=== PATIENT | female | born 2000 | race African-American/Black ===

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

== ENCOUNTER 2018-09-14 09:17 | Emergency (ER) | payer SELFPAY ==
[2018-09-14 09:28] VITALS: BP 150/92
--- NOTE | 2018-09-14 09:35 | ER Document Report ---
[facility]/ - General Chief Complaint: OB Problem (<20wks) Stated Complaint: CONFIRMATION Time Seen by Provider: 09/14/18 09:33 Information source: Patient - wants test done. No pelvic pain, no vag bleeding TRAVEL OUTSIDE OF THE [place] IN LAST 30 DAYS: No - Related Data Allergies/Adverse Reactions: No Known Allergies Allergy (Verified 09/14/18 09:18) Past Medical History - Social History Smoking Status: Never Smoker Family History: Reviewed & Not Pertinent - Immunizations Immunizations up to date: Yes Hx Diphtheria, Pertussis, Tetanus Vaccination: Yes Review of Systems - Review of Systems Constitutional: No symptoms reported EENT: No symptoms reported Cardiovascular: No symptoms reported Respiratory: No symptoms reported Gastrointestinal: No symptoms reported -: Yes All other systems reviewed and negative Physical Exam - Vital signs Vitals: Temp Pulse Resp BP Pulse Ox 98.3 F 62 16 150/92 H 100 09/14/18 09:27 09/14/18 09:27 09/14/18 09:27 09/14/18 09:27 09/14/18 09:27 - General General appearance: Appears well In distress: None - HEENT Pharynx: Normal Neck: Normal - Respiratory Respiratory status: No respiratory distress Breath sounds: Normal - Cardiovascular Rhythm: Regular Heart sounds: Normal auscultation Course - Re-evaluation Re-evalutation: 09/14/18 10:03 discussed with pt. neg preg. test here - Vital Signs Vital signs: Temp Pulse Resp BP Pulse Ox 98.3 F 62 16 150/92 H 100 09/14/18 09:27 09/14/18 09:27 09/14/18 09:27 09/14/18 09:27 09/14/18 09:27 - Laboratory Laboratory results interpreted by me: 09/14/18 09:30 Ur Leukocyte Esterase SMALL H Discharge - Discharge Clinical Impression: Laboratory test Condition: Stable Additional Instructions: rest, return if worse Referrals: BISMARK CAMPO MD [ACTIVE STAFF] - Follow up as needed
[2018-09-14 09:53] LABS: APPEARANCE,URINE SLIGHTLY-CLOUDY; BILIRUBIN,URINE NEGATIVE (NEGATIVE); COLOR,URINE STRAW; GLUCOSE, URINE NEGATIVE (NEGATIVE); KETONES,URINE NEGATIVE (NEGATIVE); LEUKOCYTE ESTERASE,URINE SMALL (NEGATIVE); NITRITE,URINE NEGATIVE (NEGATIVE); PROTEIN,URINE NEGATIVE (NEGATIVE); URINE SPECIFIC GRAVITY 1.016; UROBILINOGEN,URINE NEGATIVE mg/dL (<2.0)
== END 2018-09-14 10:10 | disposition home or self-care (01) ==
LOC: ER 09:17
DX: Z32.02 Encounter for pregnancy test, result negative (principal)
CPT/HCPCS: 81001; 81025; 99282